=== PATIENT | female | born 1955 | race Caucasian/White ===

== ENCOUNTER 2016-08-27 10:26 | Emergency (ER) | payer MEDICARE, OTHER ==
[~2016-08-27 10:26] MED LIST: ACETAMINOPHEN325 MG PO; ASPIRIN325 MG PO; AZITHROMYCIN 2250 MG PO; BACLOFEN 10MG T10 MG PO; BUSPIRONE HCL15 MG PO; CARAFATE1 GM PO; CEFDINIR300 MG PO; CLARITIN10 MG PO; ELIQUIS5 MG PO; FEOSOL325 MG PO; HABITROL21 MG TOP; LIPITOR40 MG PO; MAALOX ADVANCE355 ML PO; MACROBID100 MG PO; METFORMIN HCL500 MG PO; METHYLPHENIDATE5 MG PO; MICRO-K10 MEQ PO; MILK OF MA400 MG/5 M PO; NEURONTIN300 MG PO; NEXIUM40 MG PO; NORCO 5-325 TA1 EAC1 PO; PRILOSEC20 MG PO; PROVIGIL100 MG PO; REGLAN10 MG PO; REMERON15 MG PO; REQUIP1 MG PO; REQUIP2 MG PO; TOPROL XL 50 MG50 MG PO; VIMPAT100 MG PO; ZOLOFT100 MG PO
[2016-08-27 11:00] LABS: BILIRUBIN NEGATIVE (NEGATIVE); BLOOD NEGATIVE Ery/uL (NEGATIVE); CLARITY CLEAR (CLEAR); COLOR YELLOW (YELLOW); GLUCOSE (U) NORMAL (NORMAL); KETONE (U) NEGATIVE (NEGATIVE); LEUKOCYTES NEGATIVE Leu/uL (NEGATIVE); NITRITE NEGATIVE (NEGATIVE); PROTEIN 2+ mg/dL (NEGATIVE); SPECIFIC GRAVITY >=1.030 (1.001-1.030); UROBILINOGEN 0.2 mg/dL (0.2-1.0)
[2016-08-27 11:17] LABS: BACTERIA TRACE; MUCOUS TRACE
[2016-08-27 11:18] LABS: AMORPHOUS URATES CRYSTALS TRACE
[2016-08-27 11:32] LABS: INR 1.22 (0.9-1.2)
[2016-08-27 11:40] LABS: LACTIC ACID 1.2 mmol/L (0.5-2.2)
[2016-08-27 11:43] LABS: ALBUMIN 3.9 g/dL (3.4-4.8); BILIRUBIN - TOTAL 0.4 mg/dL (0.1-1.0); CREATININE 3.7 mg/dL (0.5-1.0); POTASSIUM 3.9 mmol/L (3.5-5.1); TOTAL PROTEIN 8.9 g/dL (6.4-8.3)
[2016-08-27 12:01] LABS: BASOPHIL 0.2 % (0-2); EOSINOPHIL 0.4 % (0-5); HCT 38.9 % (37.0-47.0); HGB 12.6 g/dl (12.5-16.0); LYMPHOCYTE 22.9 % (15-48); MCH 30.2 pg (25.0-31.0); MCHC 32.4 g/dL (32.0-36.0); MCV 93.3 fL (78.0-100.0); MONOCYTE 6.1 % (0-12); MPV 9.6 fL (6.0-9.5); NEUTROPHIL 70.4 % (41-80); PLT 259 K/uL (150-400); RBC 4.17 M/uL (4.20-5.40); RDW 13.8 % (11.5-14.0)
== END 2016-08-27 15:11 | disposition other institution (70) ==
LOC: FER 10:26
PROVIDERS: Emergency Medicine
DX: N19 Unspecified kidney failure (principal); R47.01 Aphasia; I69.959 Hemiplegia and hemiparesis following unspecified cerebrovascular disease affecting unspecified side; Z85.528 Personal history of other malignant neoplasm of kidney
CPT/HCPCS: 36415; 70450; 71010; 80053; 81001; 83605; 84484; 85025; 85610; 93005

== ENCOUNTER 2016-09-14 10:08 | Emergency (ER) | payer MEDICARE, OTHER ==
[2016-09-14 10:05] LABS: BILIRUBIN NEGATIVE (NEGATIVE); BLOOD 1+ Ery/uL (NEGATIVE); CLARITY CLEAR (CLEAR); GLUCOSE (U) 1+ mg/dL (NORMAL); KETONE (U) NEGATIVE (NEGATIVE); LEUKOCYTES NEGATIVE Leu/uL (NEGATIVE); NITRITE NEGATIVE (NEGATIVE); PROTEIN 3+ mg/dL (NEGATIVE); UROBILINOGEN 0.2 mg/dL (0.2-1.0)
[2016-09-14 10:12] LABS: COLOR STRAW (YELLOW)
[2016-09-14 10:16] LABS: AMPHETAMINES NEGATIVE (NEGATIVE); BARBITURATES NEGATIVE (NEGATIVE); BENZODIAZEPINES NEGATIVE (NEGATIVE); COCAINE NEGATIVE (NEGATIVE); MARIJUANA (THC) NEGATIVE (NEGATIVE); METHADONE NEGATIVE (NEGATIVE); TRICYCLIC ANTIDEPRESSANT NEGATIVE (NEGATIVE)
[2016-09-14 10:24] LABS: BACTERIA 1+
[2016-09-14 10:54] LABS: BASOPHIL 0.1 % (0-2); EOSINOPHIL 0.1 % (0-5); HCT 33.1 % (37.0-47.0); HGB 11.1 g/dl (12.5-16.0); LYMPHOCYTE 6.8 % (15-48); MCH 29.9 pg (25.0-31.0); MCHC 33.5 g/dL (32.0-36.0); MCV 89.2 fL (78.0-100.0); MONOCYTE 5.1 % (0-12); MPV 9.2 fL (6.0-9.5); NEUTROPHIL 87.9 % (41-80); PLT 171 K/uL (150-400); RBC 3.71 M/uL (4.20-5.40); RDW 13.9 % (11.5-14.0); WBC 8.6 K/uL (4.0-10.5)
[2016-09-14 11:17] LABS: LACTIC ACID 3.7 mmol/L (0.5-2.2)
[2016-09-14 11:18] LABS: BILIRUBIN - TOTAL 0.2 mg/dL (0.1-1.0); CREATININE 0.8 mg/dL (0.5-1.0); GLOBULIN (CALCULATION) 3.2 g/dL (2.2-4.2); MAGNESIUM 0.78 mg/dL (1.40-2.10); POTASSIUM 4.3 mmol/L (3.5-5.1); TOTAL PROTEIN 6.2 g/dL (6.4-8.3)
[2017-03-21] MEDS ORDERED: VIMPAT100 MG PO (13:27)
[2017-03-21] MEDS ORDERED: BRILINTA90 MG PO (13:27)
[2017-03-21] MEDS ORDERED: PRILOSEC20 MG PO (13:27)
[2017-03-21] MEDS ORDERED: ZOLOFT100 MG PO (13:27)
[2017-03-21] MEDS ORDERED: NORVASC5 MG PO (13:28)
[2017-03-21] MEDS ORDERED: FLORASTOR250 MG PO (13:29)
[2017-03-21] MEDS ORDERED: GLUCOPHAGE850 MG PO (13:29)
[2017-03-21] MEDS ORDERED: ASPIRIN CHEWABL81 MG PO (13:29)
[2017-03-21] MEDS ORDERED: PRINIVIL20 MG PO (13:29)
[2017-03-21] MEDS ORDERED: TEFLARO400 MG IV (13:29)
[2017-03-21] MEDS ORDERED: LIPITOR40 MG PO (13:30)
[2017-03-21] MEDS ORDERED: ARICEPT 5MG TABL5 MG PO (13:30)
[2017-03-21] MEDS ORDERED: PHENERGAN12.5 M1 PO (13:30)
[2017-03-21] MEDS ORDERED: TOPROL XL 50 MG50 MG PO (13:31)
[2017-03-21] MEDS ORDERED: NEURONTIN400 MG PO (13:31)
[2017-03-21] MEDS ORDERED: UROCIT-K10 MEQ PO (13:32)
[2017-03-21] MEDS ORDERED: ACETAMINOPHEN500 M1 PO (13:36)
[2017-03-21] MEDS ORDERED: FEOSOL325 MG PO (13:38)
[2017-03-21] MEDS ORDERED: NORMAL SALINE F10 ML IV (13:38)
[2017-03-21] MEDS ORDERED: HEPARIN FLUSH (13:38)
== END 2016-09-14 18:15 | disposition other institution (70) ==
LOC: FER 10:08
PROVIDERS: Internal Medicine
DX: G40.409 Other generalized epilepsy and epileptic syndromes, not intractable, without status epilepticus (principal); I21.4 Non-ST elevation (NSTEMI) myocardial infarction; E11.65 Type 2 diabetes mellitus with hyperglycemia; R82.90 Unspecified abnormal findings in urine; I10 Essential (primary) hypertension; G89.29 Other chronic pain; F32.9 Major depressive disorder, single episode, unspecified; Z79.01 Long term (current) use of anticoagulants; Z79.84 Long term (current) use of oral hypoglycemic drugs; Z79.899 Other long term (current) drug therapy; Z86.73 Personal history of transient ischemic attack (TIA), and cerebral infarction without residual deficits
CPT/HCPCS: 36415; 70450; 71010; 80053; 80305; 81001; 83605; 83735; 84484; 85025; 87040; 87076; 87088; 87186; 93005; J1953; J2060; J3475

== ENCOUNTER 2017-03-08 12:16 | Emergency (ER) | payer MEDICARE, OTHER ==
[2017-03-08 13:19] LABS: BASOPHIL 0.1 % (0-2); EOSINOPHIL 0 % (0-5); HCT 29.1 % (37.0-47.0); LYMPHOCYTE 14.3 % (15-48); MCH 26.2 pg (25.0-31.0); MCHC 30.9 g/dL (32.0-36.0); MCV 84.6 fL (78.0-100.0); MONOCYTE 3.7 % (0-12); MPV 9.2 fL (6.0-9.5); NEUTROPHIL 81.9 % (41-80); PLT 271 K/uL (150-400); RBC 3.44 M/uL (4.20-5.40); RDW 15.8 % (11.5-14.0)
[2017-03-08 13:20] LABS: WBC 7.3 K/uL (4.0-10.5)
[2017-03-08 13:31] LABS: LACTIC ACID 3.4 mmol/L (0.5-2.2)
[2017-03-08 13:33] LABS: ALBUMIN 2.1 g/dL (3.4-4.8); BILIRUBIN - TOTAL 0.4 mg/dL (0.1-1.0); CREATININE 1.6 mg/dL (0.5-1.0); GLOBULIN (CALCULATION) 4.9 g/dL (2.2-4.2)
== END 2017-03-08 16:47 | disposition other institution (70) ==
LOC: FER 12:16
PROVIDERS: Internal Medicine
DX: A41.9 Sepsis, unspecified organism (principal); R65.20 Severe sepsis without septic shock; I95.9 Hypotension, unspecified; I47.2 Ventricular tachycardia; J69.0 Pneumonitis due to inhalation of food and vomit; E11.9 Type 2 diabetes mellitus without complications; I10 Essential (primary) hypertension; F32.9 Major depressive disorder, single episode, unspecified; Z79.82 Long term (current) use of aspirin; Z79.899 Other long term (current) drug therapy; Z79.84 Long term (current) use of oral hypoglycemic drugs; Z86.73 Personal history of transient ischemic attack (TIA), and cerebral infarction without residual deficits
CPT/HCPCS: 36415; 36600; 71010; 80053; 82803; 83605; 83690; 84484; 85025; 85379; 87045; 87046; 87205; 87493; 93005; 94640; 96374; J0282; J2543